=== PATIENT | male | born 1945 | race African-American/Black ===

== ENCOUNTER 2025-03-26 11:15 | Emergency (ER) | payer OTHER, MEDICAID ==
[~2025-03-26] VITALS: Ht 185.4 cm; Wt 75.0 kg
[~2025-03-26 11:15] MED LIST: ATEN-42 MT; HYDR12.54 MT; LISI10TA26 MT; SERT25TA MT; SIMV10TA97 MT; TAMS-54 MT
[2025-03-26 11:17] VITALS: O2SAT 98
[2025-03-26 11:34] VITALS: TEMP 36.6
[2025-03-26 12:06] LABS: BASOPHILS % 0.4 % (0.0-2.0); EOSINOPHILS % 0.5 % (0.0-5.0); HEMATOCRIT. 40.9 % (42.0-52.0); HEMOGLOBIN. 12.7 g/dL (14.0-18.0); LYMPHOCYTES % 12.2 % (20.0-50.0); MEAN PLATELET VOLUME 8.7 fl (7.4-10.4); MONOCYTES % 5.9 % (2.0-8.0); NEUTROPHILS % 81.0 % (40.0-76.0); PLATELET 226 x1000/uL (130-400); RED BLOOD CELL COUNT 4.62 mill/uL (4.7-6.1); RED CELL DISTRIBUTION WIDTH 15.2 % (11.6-14.6)
[2025-03-26 12:22] LABS: CREATININE 1.1 mg/dL (0.6-1.3)
[2025-03-26 12:23] LABS: TROPONIN I HIGH SENSITIVITY 35 ng/L (3.0-53); UREA NITROGEN BLOOD 21 mg/dL (9-23)
[2025-03-26 12:24] LABS: ASPARTATE AMINOTRANSFERASE 22 IU/L (<34)
[2025-03-26 12:25] LABS: BILIRUBIN DIRECT 0.3 mg/dL (<=3.0); BILIRUBIN TOTAL 0.7 mg/dL (0.1-1.0); PROTEIN TOTAL 7.0 g/dL (6.0-8.3)
[2025-03-26] MEDS ORDERED: KCL 10MEQ/50ML PREMIX 50 ML IV SCH (12:30)
[2025-03-26] MEDS: SODIUM CHLORIDE 0.9% 1,000 ML IV ONE (13:29)
[2025-03-26] MEDS: KCL 10MEQ/50ML PREMIX 50 ML IV SCH (13:29)
[2025-03-26 13:47] VITALS: TEMP 97.9
[2025-03-26] MEDS ORDERED: CLONIDINE 0.1MG TABLET PO PRN (14:00)
[2025-03-26] MEDS ORDERED: ONDANSETRON HCL 4MG/2ML INJ IV PRN (14:00)
[2025-03-26] MEDS ORDERED: ACETAMINOPHEN 325MG TABLET PO PRN ×2 (14:00)
[2025-03-26] MEDS ORDERED: IPRATROPIUM/ALBUTEROL 0.5-3(2.5)MG/3ML NEB HHN PRN (14:00)
[2025-03-26] MEDS ORDERED: DOCUSATE SODIUM 100MG CAPSULE PO PRN (14:00)
[2025-03-26] MEDS: CEFTRIAXONE 1GM/50ML 50 ML IV ONE (14:41)
[2025-03-26] MEDS: AZITHROMYCIN 500MG/250ML 250 ML IV SCH (14:46)
[2025-03-26 15:59] VITALS: BP 131/65; PULSE 76; RESP 14; O2SAT 96
== END 2025-03-26 17:01 | disposition short-term general hospital (02) ==
LOC: ER 11:15 → CANBEDREQ 13:19 → ER 17:01
DX: J18.9 Pneumonia, unspecified organism (principal); R62.7 Adult failure to thrive; E78.00 Pure hypercholesterolemia, unspecified; F03.90 Unspecified dementia, unspecified severity, without behavioral disturbance, psychotic disturbance, mood disturbance, and anxiety; I10 Essential (primary) hypertension; Z79.899 Other long term (current) drug therapy; Z86.73 Personal history of transient ischemic attack (TIA), and cerebral infarction without residual deficits
CPT/HCPCS: 99285; 96374; 96361; 71045; 96375; 80076; 80048; 85025; 87040; 84484; 36415; 93005; J0456; J0696; J3480; J7030

== ENCOUNTER 2025-04-07 11:58 | Emergency (ER) | payer OTHER, MEDICAID ==
[~2025-04-07] VITALS: Ht 182.9 cm; Wt 90.0 kg
[2025-04-07 12:02] VITALS: O2SAT 97
[2025-04-07 12:40] LABS: BG BASE EXCESS 3.4 mmol/L (-2.0-3.0); BG CARBOXYHEMOGLOBIN 0.9 % (0.5-1.5); BG DEOXYHEMOGLOBIN 4.6 % (0.0-5.0); BG FRACTION INSPIRED OXYGEN 21; BG HCO3 ACT 27.0 mmol/L (21.0-28.0); BG METHEMOGLOBIN 0.3 % (0.5-1.5); BG OXYGEN SATURATION 95.3 % (94.0-98.0); BG OXYHEMOGLOBIN 94.2 % (94.0-98.0); BG PCO2 37.7 mmHg (35.0-48.0); BG PH 7.473 (7.350-7.450); BG PO2 74.3 mmHg (83.0-108.0); BG SAMPLE SITE RIGHT RADIAL; BG TOTAL HEMOGLOBIN 12.4 g/dL (13.5-17.5); BG VENT MODE ROOM AIR
[2025-04-07 13:01] LABS: BASOPHILS % 0.2 % (0.0-2.0); EOSINOPHILS % 0.2 % (0.0-5.0); HEMATOCRIT. 37.6 % (42.0-52.0); HEMOGLOBIN. 11.7 g/dL (14.0-18.0); LYMPHOCYTES % 10.5 % (20.0-50.0); MEAN PLATELET VOLUME 9.0 fl (7.4-10.4); MONOCYTES % 5.8 % (2.0-8.0); NEUTROPHILS % 83.3 % (40.0-76.0); PLATELET 254 x1000/uL (130-400); RED BLOOD CELL COUNT 4.26 mill/uL (4.7-6.1); RED CELL DISTRIBUTION WIDTH 15.2 % (11.6-14.6)
[2025-04-07 13:08] LABS: TROPONIN I HIGH SENSITIVITY 32 ng/L (3.0-53)
[2025-04-07 14:31] LABS: ETHANOL BLOOD < 10 mg/dL (<10); PROTEIN TOTAL 6.7 g/dL (6.0-8.3); UREA NITROGEN BLOOD 43 mg/dL (9-23)
[2025-04-07 14:32] LABS: ASPARTATE AMINOTRANSFERASE 23 IU/L (<34); TROPONIN I HIGH SENSITIVITY 35 ng/L (3.0-53)
[2025-04-07 14:33] LABS: BILIRUBIN DIRECT 0.2 mg/dL (<=3.0); BILIRUBIN TOTAL 0.5 mg/dL (0.1-1.0)
[2025-04-07 14:38] LABS: INR 1.1
[2025-04-07 14:39] LABS: CREATININE 1.5 mg/dL (0.6-1.3)
[2025-04-07] MEDS: SODIUM CHLORIDE 0.9% (SEPSIS BOLUS) IV ONE (15:29)
[2025-04-07] MEDS: PIPERACILLIN/TAZO 3.375G/50ML 50 ML IV ONE (15:31)
[2025-04-07 15:57] LABS: INFLUENZA TYPE A Presumptive Negative (Pres. Neg.)
[2025-04-07 15:58] LABS: INFLUENZA TYPE B Presumptive Negative (Pres. Neg.)
[2025-04-07 15:59] LABS: RESPIRATORY SYNCYTIAL VIRUS Not Detected (Not Detectd)
[2025-04-07] MEDS: VANCOMYCIN 1G PREMIX 200 ML IV ONE (16:11)
[2025-04-07] MEDS ORDERED: MAGNESIUM/ALUMINUM HYDROXIDE/SIMETHICONE 30ML UDC PO PRN (16:30)
[2025-04-07] MEDS ORDERED: MORPHINE SULFATE 2 MG/ML INJ (NOT FOR IM USE) IV PRN (16:30)
[2025-04-07] MEDS ORDERED: CEFEPIME 1GM IN DEXT 5% 50ML IV SCH (16:30)
[2025-04-07] MEDS ORDERED: ZOLPIDEM TARTRATE 5MG TABLET PO PRN (16:30)
[2025-04-07] MEDS ORDERED: ONDANSETRON HCL 4MG/2ML INJ IV PRN (16:30)
[2025-04-07] MEDS ORDERED: CLONIDINE 0.1MG TABLET PO PRN (16:30)
[2025-04-07] MEDS ORDERED: HYDROCODONE/ACETAMINOPHEN 5/325MG TABLET PO PRN (16:30)
[2025-04-07] MEDS ORDERED: NALOXONE HCL 0.4MG/ML VIAL IV PRN (16:30)
[2025-04-07] MEDS ORDERED: ACETAMINOPHEN 325MG TABLET PO PRN (16:30)
[2025-04-07] MEDS: DEXT 5%/0.45% NACL 1000ML 1,000 ML IV SCH (17:10)
[2025-04-07] MEDS: ENOXAPARIN 40MG/0.4ML SYR SUBCUT SCH (17:12)
[2025-04-07 17:30] VITALS: BP 126/58; PULSE 75; RESP 18; TEMP 36.7; O2SAT 95
[2025-04-07] MEDS ORDERED: CEFEPIME 1GM PREMIX 50ML IV SCH (18:00)
[2025-04-08] MEDS ORDERED: PANTOPRAZOLE SODIUM 40 MG/VIAL IV SCH (09:00)
== END 2025-04-07 17:50 | disposition short-term general hospital (02) ==
LOC: ER 11:58 → EDBEDREQ 14:53 → EDBEDREQTM 14:53 → ER 17:50 → CMPBEDREQ 20:28
DX: G93.41 Metabolic encephalopathy (principal); R65.10 Systemic inflammatory response syndrome (SIRS) of non-infectious origin without acute organ dysfunction; F03.90 Unspecified dementia, unspecified severity, without behavioral disturbance, psychotic disturbance, mood disturbance, and anxiety; E78.00 Pure hypercholesterolemia, unspecified; Z79.899 Other long term (current) drug therapy; Z86.73 Personal history of transient ischemic attack (TIA), and cerebral infarction without residual deficits; Z20.822 Contact with and (suspected) exposure to COVID-19
CPT/HCPCS: 80076; 80048; 80320; 82140; 83880; 83605; 83690; 83735; 84443; 85025; 85610; 87420; 87040; 84484; 87804 ×2; 36415; 84145; 71045; 70450; 82805; 82375; 93005; 96367; 96361; 96365; 96372; 99285; 87426; 36600; J1650; J2543; J3373; J7030; J0692; G0480